=== PATIENT | female | born 1955 | race Caucasian/White ===

== ENCOUNTER → 2023-04-27 13:13 | Outpatient (REF) | payer MEDICARE, OTHER, SELFPAY ==
[2023-04-27 16:06] LABS: ALT (SGPT) 18 U/L (0-35); AST (SGOT) 24 U/L (14-36); Alkaline Phosphatase 56 U/L (38-126); Blood Urea Nitrogen 25 mg/dl (7-17); Calcium 9.6 mg/dl (8.4-10.2); Carbon Dioxide 27 mmol/L (22-30); Chloride 102 mmol/L (98-107); Glucose 95 mg/dl (70-99); Sodium 137 mmol/L (135-145); Total Bilirubin 0.5 mg/dl (0.2-1.3); Total Protein 6.9 g/dl (6.3-8.2); eGFR > 60.00
== END ==
LOC: HWLAB 13:13
PROVIDERS: ATTENDING PHYSICIAN Internal Medicine Rheumatology; FAMILY PHYSICIAN Internal Medicine
DX: M81.0 Age-related osteoporosis without current pathological fracture (principal)
CPT/HCPCS: 36415; 80053

== ENCOUNTER → 2023-06-24 11:44 | Outpatient (REF) | payer MEDICARE, OTHER, SELFPAY | LOC: WDC 11:44 | PROVIDERS: ATTENDING PHYSICIAN Nurse Practitioner Family; FAMILY PHYSICIAN Internal Medicine | DX: N61.0 Mastitis without abscess (principal); N64.4 Mastodynia; N64.59 Other signs and symptoms in breast | CPT/HCPCS: 76642; 77065 ==

== ENCOUNTER → 2023-07-14 11:14 | Outpatient (REF) | payer MEDICARE, OTHER, SELFPAY ==
[2023-07-14 14:26] LABS: Glycohemoglobin (HgbA1c) 5.7 % (4.0-5.6)
== END ==
LOC: MRI 3T 11:14
PROVIDERS: ATTENDING PHYSICIAN Surgery; FAMILY PHYSICIAN Internal Medicine
DX: N63.20 Unspecified lump in the left breast, unspecified quadrant (principal); R73.9 Hyperglycemia, unspecified
CPT/HCPCS: 36415; 77049; 83036; A9575

== ENCOUNTER → 2023-08-03 11:47 | Outpatient (REF) | payer MEDICARE, OTHER, SELFPAY ==
--- NOTE | 2023-08-03 15:58 | OID.BR.INTR ---
OID Breast Navigator - Initial
- -
Date of Contact: 08/03/23
Met with patient. Patient given written information on navigator services and support services available at [facility]. Will follow up as needed per protocol.
== END ==
LOC: WDC 11:47
PROVIDERS: ATTENDING PHYSICIAN Surgery; FAMILY PHYSICIAN Internal Medicine
DX: R92.8 Other abnormal and inconclusive findings on diagnostic imaging of breast (principal); N63.22 Unspecified lump in the left breast, upper inner quadrant
CPT/HCPCS: 88305; 19083; 77065; 88341; 88342; 88360; A4648

== ENCOUNTER → 2023-08-25 10:55 | Outpatient (REF) | payer MEDICARE, OTHER, SELFPAY | LOC: CLAB 10:55 | PROVIDERS: ATTENDING PHYSICIAN Surgery; REFERRING PHYSICIAN Internal Medicine | DX: C50.412 Malignant neoplasm of upper-outer quadrant of left female breast (principal); N64.9 Disorder of breast, unspecified | CPT/HCPCS: 88305 ==

== ENCOUNTER → 2023-09-15 08:33 | Outpatient (REF) | payer MEDICARE, OTHER, SELFPAY | LOC: WDC 08:33 | PROVIDERS: ATTENDING PHYSICIAN Surgery | DX: D05.92 Unspecified type of carcinoma in situ of left breast (principal); R92.8 Other abnormal and inconclusive findings on diagnostic imaging of breast | CPT/HCPCS: 19285; 77065; A4648 ==

== ENCOUNTER 2023-09-16 06:19 | Day surgery (SDC) | payer MEDICARE, OTHER, SELFPAY ==
[2023-08-29 08:53] VITALS: BMI 25.4
[2023-09-16 15:10] VITALS: BP 126/82; BMI 25.4
[2023-09-16] MEDS: TYLENOL 1000 MG PO (15:14)
[2023-09-16 17:45] VITALS: BP 144/73
[2023-09-16 18:00] VITALS: BP 125/72
[2023-09-16 18:15] VITALS: BP 126/72
== END 2023-09-16 18:35 | disposition home or self-care (01) ==
LOC: SDS 06:19
PROVIDERS: ATTENDING PHYSICIAN Surgery; FAMILY PHYSICIAN Internal Medicine
DX: D05.12 Intraductal carcinoma in situ of left breast (principal); N60.12 Diffuse cystic mastopathy of left breast
CPT/HCPCS: 19301; 88305; 88307; 76098; 88341; 88342; 88360; A4648

== ENCOUNTER → 2023-11-04 08:35 | Outpatient (REF) | payer MEDICARE, OTHER, SELFPAY ==
[2023-11-04 12:50] LABS: ALT (SGPT) 21 U/L (0-35); AST (SGOT) 25 U/L (14-36); Albumin 4.5 g/dl (3.5-5.0); Alkaline Phosphatase 62 U/L (38-126); Blood Urea Nitrogen 22 mg/dl (7-17); Calcium 9.9 mg/dl (8.4-10.2); Carbon Dioxide 24 mmol/L (22-30); Chloride 103 mmol/L (98-107); Glucose 102 mg/dl (70-99); Potassium 4.1 mmol/L (3.5-5.1); Sodium 139 mmol/L (135-145); Total Bilirubin 0.6 mg/dl (0.2-1.3); Total Protein 6.7 g/dl (6.3-8.2); eGFR > 60.00
== END ==
LOC: HWLAB 08:35
PROVIDERS: ATTENDING PHYSICIAN Internal Medicine Rheumatology; FAMILY PHYSICIAN Internal Medicine
DX: M81.0 Age-related osteoporosis without current pathological fracture (principal)
CPT/HCPCS: 36415; 80053

== ENCOUNTER → 2023-11-14 09:55 | Outpatient (REF) | payer MEDICARE, OTHER, SELFPAY | LOC: HWRAD 09:55 | PROVIDERS: ATTENDING PHYSICIAN Internal Medicine Rheumatology; FAMILY PHYSICIAN Internal Medicine; REFERRING PHYSICIAN Nurse Practitioner Family | DX: M81.0 Age-related osteoporosis without current pathological fracture (principal) | CPT/HCPCS: 77080 ==

== ENCOUNTER → 2023-12-08 10:42 | Outpatient (REF) | payer MEDICARE, OTHER, SELFPAY ==
[2023-12-08 15:52] LABS: % Eosinophils 4.2 % (0-6); % Immature Granulocytes 0.2 % (0-0.5); % Lymphocytes 38.9 % (20.5-51.1); % Monocytes 6.5 % (1.7-9.3); % Neutrophils 49.2 % (42.2-75.2); Absolute Basophils 0.1 10^3/uL (0-0.2); Absolute Eosinophils 0.2 10^3/uL (0-0.7); Absolute Monocytes 0.3 10^3/uL (0.1-0.6); Absolute Neutrophils 2.6 10^3/uL (1.4-6.5); Hematocrit 37.8 % (37.0-47.0); Hemoglobin 12.6 g/dL (12.0-16.0); Mean Corp Hgb Conc. 33.3 g/dL (33.0-37.0); Mean Corpuscular Hgb 29.6 pg (27.0-31.0); Mean Corpuscular Volume 88.9 fL (81.0-99.0); Mean Platelet Volume 9.4 fL (7.4-10.4); Nucleated Red Blood Cells % 0 %; Platelet Count 389 10^3/uL (130-400); Red Blood Cell Count 4.25 10^6/uL (4.20-5.40); Red Cell Dist. Width 12.8 % (11.5-14.5); White Blood Cell Count 5.2 10^3/uL (4.8-10.8)
[2023-12-08 15:59] LABS: ALT (SGPT) 22 U/L (0-35); AST (SGOT) 27 U/L (14-36); Albumin 4.1 g/dl (3.5-5.0); Alkaline Phosphatase 53 U/L (38-126); Blood Urea Nitrogen 18 mg/dl (7-17); Calcium 8.7 mg/dl (8.4-10.2); Carbon Dioxide 26 mmol/L (22-30); Chloride 105 mmol/L (98-107); Glucose 96 mg/dl (70-99); HDL Cholesterol 68 mg/dl; LDL Cholesterol, Calculated 165 mg/dl; Potassium 4.1 mmol/L (3.5-5.1); Sodium 143 mmol/L (135-145); Total Bilirubin 0.3 mg/dl (0.2-1.3); Total Cholesterol 249 mg/dl (50-199); Total Protein 6.5 g/dl (6.3-8.2); Triglyceride 81 mg/dl (10-149); Very Low Density Lipoprotein 16 mg/dl (0-30); eGFR > 60.00
[2023-12-08 16:28] LABS: TSH Reflex To Free T4 0.82 uIU/ml (0.47-4.68)
[2023-12-08 18:42] LABS: Hepatitis B Surface Antigen Negative (Negative)
[2023-12-08 19:00] LABS: Hepatitis B Core Ab, Total Negative (Negative); Hepatitis B Surface Antibody Negative
== END ==
LOC: HWLAB 10:42
PROVIDERS: ATTENDING PHYSICIAN Internal Medicine; REFERRING PHYSICIAN Internal Medicine Rheumatology
DX: K21.9 Gastro-esophageal reflux disease without esophagitis (principal); F41.9 Anxiety disorder, unspecified; F32.A Depression, unspecified; E78.00 Pure hypercholesterolemia, unspecified; Z11.59 Encounter for screening for other viral diseases
CPT/HCPCS: 36415; 80053; 80061; 84443; 85025; 86704; 86706; 87340

== ENCOUNTER → 2024-01-30 16:35 | Outpatient (REF) | payer MEDICARE, OTHER, SELFPAY | LOC: MRI 3T 16:35 | PROVIDERS: ATTENDING PHYSICIAN Surgery; FAMILY PHYSICIAN Nurse Practitioner Family; REFERRING PHYSICIAN Nurse Practitioner Family | DX: C50.412 Malignant neoplasm of upper-outer quadrant of left female breast (principal) | CPT/HCPCS: 77049; A9585 ==

== ENCOUNTER → 2024-03-22 10:48 | Outpatient (REF) | payer MEDICARE, OTHER, SELFPAY | LOC: DHSLP 10:48 | PROVIDERS: ATTENDING PHYSICIAN Internal Medicine; FAMILY PHYSICIAN Nurse Practitioner Family | DX: G47.00 Insomnia, unspecified (principal); G47.61 Periodic limb movement disorder; G47.8 Other sleep disorders | CPT/HCPCS: 95810 ==

== ENCOUNTER → 2024-03-23 07:00 | Outpatient (REF) | payer MEDICARE, OTHER, SELFPAY | LOC: DHSLP 07:00 | PROVIDERS: ATTENDING PHYSICIAN Internal Medicine; FAMILY PHYSICIAN Internal Medicine | DX: G47.19 Other hypersomnia (principal) | CPT/HCPCS: 95805 ==

== ENCOUNTER → 2024-05-11 11:55 | Outpatient (REF) | payer MEDICARE, OTHER, SELFPAY ==
[2024-05-11 16:49] LABS: ALT (SGPT) 18 U/L (0-35); AST (SGOT) 21 U/L (14-36); Albumin 4.4 g/dl (3.5-5.0); Alkaline Phosphatase 54 U/L (38-126); Blood Urea Nitrogen 19 mg/dl (7-17); Calcium 8.9 mg/dl (8.4-10.2); Carbon Dioxide 22 mmol/L (22-30); Chloride 106 mmol/L (98-107); Glucose 100 mg/dl (70-99); Potassium 4.5 mmol/L (3.5-5.1); Sodium 139 mmol/L (135-145); Total Bilirubin 0.5 mg/dl (0.2-1.3); Total Protein 6.6 g/dl (6.3-8.2); eGFR > 60.00
== END ==
LOC: HWLAB 11:55
PROVIDERS: ATTENDING PHYSICIAN Internal Medicine Rheumatology; FAMILY PHYSICIAN Internal Medicine
DX: M81.0 Age-related osteoporosis without current pathological fracture (principal)
CPT/HCPCS: 36415; 80053

== ENCOUNTER → 2024-05-23 12:21 | Outpatient (REF) | payer MEDICARE, OTHER, SELFPAY ==
[2024-05-23 16:23] LABS: ALT (SGPT) 17 U/L (0-35); AST (SGOT) 22 U/L (14-36); Albumin 4.7 g/dl (3.5-5.0); Alkaline Phosphatase 61 U/L (38-126); Blood Urea Nitrogen 16 mg/dl (7-17); Calcium 9.5 mg/dl (8.4-10.2); Carbon Dioxide 27 mmol/L (22-30); Chloride 106 mmol/L (98-107); Glucose 100 mg/dl (70-99); HDL Cholesterol 74 mg/dl; LDL Cholesterol, Calculated 178 mg/dl; Potassium 4.5 mmol/L (3.5-5.1); Sodium 141 mmol/L (135-145); Total Bilirubin 0.5 mg/dl (0.2-1.3); Total Cholesterol 284 mg/dl (50-199); Total Protein 7.1 g/dl (6.3-8.2); Triglyceride 162 mg/dl (10-149); Very Low Density Lipoprotein 32 mg/dl (0-30); eGFR > 60.00
== END ==
LOC: HWLAB 12:21
PROVIDERS: ATTENDING PHYSICIAN Internal Medicine
DX: E78.00 Pure hypercholesterolemia, unspecified (principal)
CPT/HCPCS: 36415; 80053; 80061

== ENCOUNTER → 2024-06-21 10:04 | Outpatient (REF) | payer MEDICARE, OTHER, SELFPAY ==
[2024-06-21 12:44] LABS: % Eosinophils 4.7 % (0-6); % Lymphocytes 41.4 % (20.5-51.1); % Monocytes 6.6 % (1.7-9.3); % Neutrophils 46.3 % (42.2-75.2); Absolute Basophils 0.1 10^3/uL (0-0.2); Absolute Eosinophils 0.2 10^3/uL (0-0.7); Absolute Monocytes 0.3 10^3/uL (0.1-0.6); Absolute Neutrophils 2.3 10^3/uL (1.4-6.5); Hematocrit 41.5 % (37.0-47.0); Hemoglobin 13.5 g/dL (12.0-16.0); Mean Corp Hgb Conc. 32.5 g/dL (33.0-37.0); Mean Corpuscular Volume 89.2 fL (81.0-99.0); Mean Platelet Volume 9.4 fL (7.4-10.4); Nucleated Red Blood Cells % 0 %; Platelet Count 398 10^3/uL (130-400); Red Blood Cell Count 4.65 10^6/uL (4.20-5.40); Red Cell Dist. Width 12.8 % (11.5-14.5); White Blood Cell Count 4.9 10^3/uL (4.8-10.8)
[2024-06-21 12:56] LABS: Iron 134 ug/dl (37-170)
[2024-06-21 13:25] LABS: TSH Reflex To Free T4 1.25 uIU/ml (0.47-4.68)
[2024-06-21 13:29] LABS: Ferritin 53.4 ng/ml (11.1-264.0)
[2024-06-21 14:00] LABS: Folate 9.3 ng/ml (2.76-20); Vitamin B12 > 1000 pg/ml (239-931)
== END ==
LOC: HWLAB 10:04
PROVIDERS: ATTENDING PHYSICIAN Internal Medicine; OTHER PHYSICIAN Internal Medicine Endocrinology, Diabetes & Metabolism; REFERRING PHYSICIAN Internal Medicine Rheumatology
DX: R53.82 Chronic fatigue, unspecified (principal); D05.12 Intraductal carcinoma in situ of left breast; E53.8 Deficiency of other specified B group vitamins
CPT/HCPCS: 36415; 82607; 82728; 82746; 83540; 84443; 85025; 86618

== ENCOUNTER → 2024-09-12 15:39 | Outpatient (REF) | payer MEDICARE, OTHER, SELFPAY | LOC: WDC 15:39 | PROVIDERS: ATTENDING PHYSICIAN Surgery; FAMILY PHYSICIAN Internal Medicine | DX: Z12.31 Encounter for screening mammogram for malignant neoplasm of breast (principal) | CPT/HCPCS: 77063; 77067 ==

== ENCOUNTER → 2024-10-08 10:47 | Outpatient (REF) | payer MEDICARE, OTHER, SELFPAY | LOC: HWRAD 10:47 | PROVIDERS: ATTENDING PHYSICIAN Internal Medicine Endocrinology, Diabetes & Metabolism; FAMILY PHYSICIAN Internal Medicine | DX: E04.2 Nontoxic multinodular goiter (principal) | CPT/HCPCS: 76536 ==

== ENCOUNTER → 2024-11-02 11:48 | Outpatient (REF) | payer MEDICARE, OTHER, SELFPAY ==
[2024-11-02 15:59] LABS: TSH 1.05 uIU/ml (0.47-4.68)
== END ==
LOC: HWLAB 11:48
PROVIDERS: ATTENDING PHYSICIAN Internal Medicine Endocrinology, Diabetes & Metabolism; FAMILY PHYSICIAN Nurse Practitioner Family
DX: E04.2 Nontoxic multinodular goiter (principal)
CPT/HCPCS: 36415; 84439; 84443

== ENCOUNTER → 2024-11-20 08:38 | Outpatient (REF) | payer MEDICARE, OTHER, SELFPAY ==
[2024-11-20 11:08] LABS: ALT (SGPT) 15 U/L (0-35); AST (SGOT) 20 U/L (14-36); Albumin 4.2 g/dl (3.5-5.0); Alkaline Phosphatase 47 U/L (38-126); Blood Urea Nitrogen 20 mg/dl (7-17); Calcium 9.1 mg/dl (8.4-10.2); Carbon Dioxide 24 mmol/L (22-30); Chloride 109 mmol/L (98-107); Glucose 93 mg/dl (70-99); HDL Cholesterol 75 mg/dl; LDL Cholesterol, Calculated 156 mg/dl; Potassium 4.3 mmol/L (3.5-5.1); Sodium 140 mmol/L (135-145); Total Protein 6.7 g/dl (6.3-8.2); Very Low Density Lipoprotein 26 mg/dl (0-30); eGFR > 60.00
[2024-11-20 11:15] LABS: Vitamin D, 25-OH*** 67.0 ng/mL (30-80)
== END ==
LOC: HWLAB 08:38
PROVIDERS: ATTENDING PHYSICIAN Physician Assistant; FAMILY PHYSICIAN Nurse Practitioner Family
DX: E55.9 Vitamin D deficiency, unspecified (principal); M15.9 Polyosteoarthritis, unspecified; M23.307 Other meniscus derangements, unspecified meniscus, left knee; M81.0 Age-related osteoporosis without current pathological fracture; E78.2 Mixed hyperlipidemia
CPT/HCPCS: 36415; 80053; 80061; 82306

== ENCOUNTER 2024-11-21 17:47 | Observation (INO) | payer MEDICARE, OTHER, SELFPAY ==
[2024-11-21] VITALS (9 sets, daily range): BP systolic 127–150; BP diastolic 78–91; BMI 27.0
[2024-11-21 13:23] LABS: Hematocrit 38.0 % (37.0-47.0); Hemoglobin 12.6 g/dL (12.0-16.0); Mean Corp Hgb Conc. 33.2 g/dL (33.0-37.0); Mean Corpuscular Volume 86.8 fL (81.0-99.0); Nucleated Red Blood Cells % 0 %; Platelet Count 364 10^3/uL (130-400); Red Cell Dist. Width 12.9 % (11.5-14.5)
[2024-11-21 13:33] LABS: ALT (SGPT) 17 U/L (0-35); AST (SGOT) 23 U/L (14-36); Albumin 4.7 g/dl (3.5-5.0); Alkaline Phosphatase 55 U/L (38-126); Blood Urea Nitrogen 18 mg/dl (7-17); Calcium 10.9 mg/dl (8.4-10.2); Carbon Dioxide 26 mmol/L (22-30); Chloride 105 mmol/L (98-107); Glucose 91 mg/dl (70-99); Potassium 4.2 mmol/L (3.5-5.1); Sodium 138 mmol/L (135-145); Total Protein 7.6 g/dl (6.3-8.2); eGFR > 60.00
[2024-11-21 13:39] LABS: APTT 25.6 Sec (23.4-35.0); INR 0.86; PT 12.2 Sec (11.4-14.6)
--- NOTE | 2024-11-21 15:51 | ED.CVA ---
History of Present Illness
General
Chief Complaint: CVA/TIA Symptoms
Source: patient
Exam Limitations: none
Time Seen by Provider: 11/21/24 15:06
Nursing documentation reviewed up to this point in time: agreed with
Onset of Stroke Symptoms
Onset of symptoms known: Yes
Date of onset of symptoms: 11/07/24
History of Present Illness
History of Present Illness:
Patient with history of hypercholesterolemia, treated with diet, and depression, presents to ED secondary to left eye visual field deficit over the past 2 weeks. Patient has been evaluated by her toll line mechanic and diagnosed with likely central
retinal artery occlusion. Patient called and wanted to have a second opinion at [facility] retinal specialist. When patient called to make an appointment, she was advised to come to ED for stroke workup first. Since onset of symptoms 2 weeks
ago, patient states that visual field deficit has gotten greater. Denies headache. Denies dizziness. Denies blurred vision. Denies loss of sensation or weakness. Denies difficulty with speech. Denies difficulty ambulation. Denies previous
history of similar symptoms.
Past History
Past History
ED Past Medical History: None
ED Past Surgical History: None
Review of Systems
Review of Systems
Allergies reviewed?: Yes
All Other Systems: ROS reviewed and negative except as documented in HPI and ROS
Constitutional: Reports no symptoms
Respiratory: Reports no symptoms
Cardiac: Reports no symptoms
ABD/GI: Reports no symptoms
Musculoskeletal: Reports no symptoms
Skin: Reports no symptoms
Neurological: Reports other (visual field deficit)
Phy Exam
Physical Exam
Physical Exam:
Physical Exam
General: no apparent distress, not acutely ill. afebrile
Head: nc/at. eomi
Neck: supple. no meningeal signs.
Heart: s1/s2 regular rate and rhythm
Lungs: no acute respiratory distress. clear bilaterally
Abdomen: normal bowel sounds. not tender.
Neuro: alert and oriented x 3. no focal sensory/motor deficit. normal speech. left eye: top 1/2 visual field deficit
Skin: no rash
Psychiatric: well kept. interactive and cooperative
Extremities: no edema. no calf tenderness.
Course
Orders/Labs/Results
Orders:
Orders
11/21/24 12:41
CT Head W/o Iv Contrast Urgent
Comment:
Reason For Exam: visual change
11/21/24 12:42
ECG [Electrocardiogram (*1)] Urgent
Reason for Study: TIA/Stroke
EKG- Treatment ONCE
11/21/24 13:14
C-Reactive Protein Urgent
Comment: ADD ON
Complete Blood Count/With Diff Urgent
Comprehensive Metabolic Panel Urgent
Erythrocyte Sed Rate Urgent
Glycohemoglobin (HgbA1c) Urgent
PT/INR [Prothrombin Time] Urgent
PTT Urgent
11/21/24 Dinner
Regular
At Your Request: Full Participation
Does patient need a safe tray?: No
11/21/24 16:00
CT Head & Neck Angio W/wo IV Urgent
Comment:
Reason For Exam: left visual field deficit
Aspirin Chewable [Low Strength Aspirin] 81 mg PO NOW STA
11/21/24 17:09
Admit/Transfer Patient As Directed
Co-Sign Provider:
Level of Care: Observation services
Assign to:: Telemetry
Physician / Group: Odilia Cohen
Diagnosis: visual field deficit
Reason for Telemetry: CVA/TIA
Date to Stop Telemetry: 11/24/24
Time to Stop Telemetry: 11:00
11/21/24 17:10
PRN Pain Medication Management As Directed
May give lesser potent ordered pain med per pt: Yes
preference::
Protocol:: Medication orders for pain may be administered in a
manner that supports deferring to patient preference
when the pt is:
- Requesting an ordered lesser potent pain medication.
Least to most potent pain medications are defined
as: acetaminophen < NSAID < tramadol < opioids
(morphine, oxycodone, hydromorphone).
- Requesting a lesser dose of the same medication IF
ORDERED.
- Requesting a less intrusive route of administration
if both routes are prescribed by the provider (PO <
IV).
11/21/24 17:11
Code Status As Directed
Resuscitation Status: Full Code
11/21/24 20:19
Lamotrigine [Lamictal] 100 mg PO BID
11/21/24 20:19
NEUROLOGY CONSULT Routine
Consulting Provider: Becki Villa
Was physician already notified: Yes
Activity As Directed
Activity Level: Ambulate
NIH Stroke Scale As Directed
Neurological Checks As Directed
Frequency: Per unit guidelines
Pneumatic Compression Sleeves As Directed
Type: Knee high
Vital Signs As Directed
Frequency: Per unit guidelines
Weight As Directed
Frequency: Once
Comment: on admission
DX Deep Vein Thrombosis Video Routine
11/21/24 22:00
Cetirizine HCl [Zyrtec] 10 mg PO HS
Duloxetine Delayed Release [Cymbalta Delayed Release] 40 mg PO HS
Raloxifene [Evista] 60 mg PO HS
11/22/24 06:47
Basic Metabolic Panel IN AM
Cardiovascular Evaluation IN AM
TSH IN AM
11/22/24 07:00
Echo 2D MMode Color/Doppler Routine
Reason for Study: Thrombotic source for stroke-like sxs
11/22/24 08:00
Calcium Carbonate/Vitamin D3 [Oscal 500 + D] 500 mg PO DAILY
Lactobac/Bifidobac [Visbiome] 1 cap PO DAILY
Pantoprazole [Protonix] 20 mg PO DAILY
Psyllium [Metamucil, Konsyl] 1 packet PO DAILY
11/24/24 11:00
DC Protocol for Telemetry ONCE
Abnormal Lab Results
11/21/24
13:14
Eosinophils % 6.2 H %
(0-6)
BUN 18 H mg/dl
(7-17)
Calcium 10.9 H D mg/dl
(8.4-10.2)
11/21/24 13:14
11/21/24 13:14
Vital Signs
Initial and Last Documented VS:
Initial Vital Signs
Temp Pulse Resp Pulse Ox
97.9 F 76 18 97
11/21/24 12:36 11/21/24 12:36 11/21/24 12:36 11/21/24 12:36
Last Documented Vital Signs
Temp Pulse Resp BP Pulse Ox
98.2 F 76 18 145/80 98
11/22/24 11:37 11/22/24 11:37 11/22/24 11:37 11/22/24 11:37 11/22/24 11:37
MDM/Problems Addressed
MDM/Problems Addressed:
CT head: No acute findings.
Discussed with on-call neuroloy () - recommends starting patient on 81mg aspirin and admission for CVA workup.
*Pulse Oximetry
SaO2: 100
Oxygen Mode of Delivery: Room air
Patient hypoxic: no
*EKG
Interpreted by ED Provider?: Yes
EKG Intrepretation Date: 11/21/24
Heart Rate: 70
Rate: normal
Rhythm: sinus
Peytona: normal axis
Interval: normal interval
*Critical Care Note
Total Time (30-74mins, 75-104mins- exclusive of procedures): Not Applicable
ED Attending Note
-
Portions of this chart may have been created with voice recognition software.� Occasional wrong word or��sound alike� substitutions may have occurred due to the inherent limitations of voice recognition software.
Discharge Plan
Departure
Patient Disposition: Admit
Date of Disposition: 11/21/24
Time of Disposition: 16:03
Admit to: Telemetry
Presentation/result/management discussed w/ accepting MD/DO: Hospitalist
Discharge Problem:
visual field deficit
Interventions
Interventions:
*Risk Screen - Suicide Last Done: 11/21/24 12:36
*General Assessment Last Done: 11/21/24 12:36
*Neglect/Abuse Screening Last Done: 11/21/24 15:51
*ED- Fall Risk Assessment Last Done: 11/21/24 15:51
*ED COVID-19 Vaccine History Last Done: 11/21/24 15:51
*Nursing Disposition Last Done: 11/21/24 20:26
ED- Pulmonary Assessment Last Done: 11/21/24 15:54
ED- Neurological Assessment Last Done: 11/21/24 16:00
ED- Cardiac Assessment Last Done: 11/21/24 15:54
ED Swallowing Screen Last Done: 11/21/24 16:15
Discharge Date and Time
Discharge Date/Time: 11/21/24 20:27
--- NOTE | 2024-11-21 16:08 | HPS.HSE ---
Addendum entered and electronically signed by Odilia Cohen MD 11/21/24 17:57:
This is an addendum to H&P written by Shannan Tineo on 11/21/2024. �Patient seen and examined independently with WELT SLASHER.
69-year-old female past medical history of depression, GERD, arthritis, osteoporosis, fibromyalgia, chronic right jaw pain suspected trigeminal neuralgia presenting with persistent grayness in the left eye 10 days ago in the left eye in the upper
half of the visual orantes.
She she saw electronic equipment installer who thought she has central retinal artery occlusion. �She called to make a second opinion and was told to come to the emergency room to rule out stroke.
In May she had an episode of left swelling and itching which resolved with topical hydrocortisone. �This also occurred a few days ago which resolved with topical hydrocortisone.
Vital signs unremarkable.
Labs show calcium of 10.9.
CT head shows no acute intracranial abnormality.
Patient with superior hemianopia of left eye concerning for acute CVA. �CTA head and neck pending. �Check A1c and lipid panel. �Check MRI brain. �Neurology recommended starting aspirin and statin. Check echo.�
Original Note:
Family Physician
-
Family Physician: Piedad Blackman
Chief Complaint
-
left eye visual field deficit
History of Present Illness
Patient is a 69-year-old female with past medical history significant for depression, GERD, arthritis, osteoporosis and fibromyalgia who presented to [facility] ED for evaluation for left eye visual field deficit. Patient reports left upper field of
vision in left eye had deficit that started 10 days ago and has progressed to the entire upper half of left eye visual field. She also complains of discomfort, described as 'feels like it is swollen inside,' does say similar to pressure. She was
seen by electronic equipment installer and diagnosed with likely central retinal artery occlusion, in pursuit of second opinion with retinal specialist, the office advised her to go to ED for stroke workup. Patient denies any headaches, dizziness, confusion,
blurry vision, sensory deficit, imbalance, difficulty talking, confusion, recent illness, rash or bug bite. Patient notes that in May of 2024 she had what she believes was environmental allergen where left eye became swollen and itchy, it did
spread to right eye and has been intermittently irritated since then, in July 2024 she began using hydrocortisone cream to help alleviate symptoms and has been effective. Most recent episode of left eye being swollen an itchy was Tuesday.
Medical History
Past Medical History
Past Medical History: Reports Other
Additional Past Medical History:
depression
GERD
arthritis
osteoporosis
fibromyalgia
Past Surgical History: Reports Other
Additional Past Surgical History:
hemorrhoidectomy
squamous cell removed face 2015
wisdom teeth
Left ramírez biopsy 2014
skin biopsy 2017
US guided Left breast biopsy 08/01/2023
office biopsy Left breast 08/25/23
Left localized lumpectomy oncoplastic closure 09/16/23
Social History
Tobacco: Non-smoker
Personal:
Living: With Family
Family History
Family History: Other (Mother: colon cancer, HTN; Father: wet and dry macular degeneration; Sister: renal cancer)
Allergies / Home Medications
Allergies reflects when Allergies were last updated in [employer].
Home Medications with original date entered in [employer]
Allergy/Medication List:
Allergies
Allergy/AdvReac Type Severity Reaction Status Date / Time
cephalexin (From Keflex) Allergy Rash Verified 11/21/24 15:52
Cephalosporins Allergy Rash Verified 11/21/24 15:52
prochlorperazine edisylate Allergy BODY RASH Verified 11/21/24 15:52
(From Compazine)
prochlorperazine maleate Allergy BODY RASH Verified 11/21/24 15:52
(From Compazine)
Home Medications
calcium 600 mg (as carbonate)-vitamin D3 10 mcg (400 unit) tablet (Calcium 600 + D(3)) 1 tab PO DAILY 09/14/23
cetirizine 10 mg tablet (Zyrtec) 10 mg PO HS 09/14/23
denosumab 60 mg/mL subcutaneous syringe (Prolia) 60 mg SC [id number] 09/14/23
hyaluronate sodium, stabilized 88 mg/4 mL intra-articular syringe (Monovisc) 88 mg intra-articular [id number] 09/14/23
ibuprofen 600 mg tablet 600 mg PO Q8HPRN PRN mild pain 09/14/23
lamotrigine 100 mg tablet 100 mg PO BID jaw pains 09/14/23
pantoprazole 20 mg tablet,delayed release (Protonix) 20 mg PO DAILY 09/14/23
red yeast rice 600 mg capsule 1,200 mg PO DAILY 09/14/23
vitamin E (dl, acetate) 450 mg (1,000 unit) capsule 450 mg PO DAILY 09/14/23
Bifidobacterium longum 10 million cell capsule (Align (B.longum)) 1 cell PO DAILY 11/21/24
duloxetine 20 mg capsule,delayed release 40 mg PO HS 11/21/24
krill kwh-rcbwl-1-dha-epa 300 mg-90 mg (27 mg-45 mg) capsule 1 cap PO DAILY 11/21/24
psyllium 1 packet PO DAILY 11/21/24
raloxifene 60 mg tablet 60 mg PO HS 11/21/24
therapeutic multivitamin 1 tab PO DAILY 11/21/24
Review of Systems
-
History Source: Patient
Constitutional: Denies Fever or Chills
EENT: Reports Other (left eye upper 1/2 visual field deficit, intermittent bilateral eyelid edema and itching ); Denies Sore Throat, Mouth Pain or Runny Nose
Respiratory: Denies Cough or Trouble Breathing
Cardiac: Denies Chest Pain, Diaphoresis, Palpitations or Syncope
Abdomen/GI: Denies Abdominal Pain, Nausea, Vomiting or Diarrhea
: Denies Dysuria, Frequency, Difficulty Voiding or Urgency
Musculoskeletal: Denies Joint Pain or Joint Swelling
Skin: Denies Itching or Rash
Neurological: Denies Dizzy, Headache, Weakness or Numbness
Endocrine: Denies Polyuria or Polydipsia
Physical Exam
Vital Signs
Vital Signs
Temp Pulse Resp BP Pulse Ox
97.9 F 72 18 136/87 100
11/21/24 12:36 11/21/24 15:25 11/21/24 15:25 11/21/24 15:25 11/21/24 15:54
Physical Exam
General: Well Developed, Well Nourished, Comfortable, Conversant and Obese
HEENT: NormoCephalic, Moist mucous membranes, Atraumatic, PERRLA, Nose Appears Normal, Ears Appear Normal and Other (left eyelid with dry patch and irritation )
Respiratory: Clear and Non Labored Respirations
Cardiac: S1/S2 and Regular Rhythm; No Murmur, Rub or Gallop
GI: Soft, Non Tender, Non Distended and Normal Bowel Sounds; No Organomegaly
Rectal: Deferred by Provider
Musculoskeletal: No Clubbing, No Cyanosis and No Edema
Skin: Warm; No Rash
Neuro: Awake, AO x 3, No Motor Deficits, Nonfocal/grossly intact, Cranial Nerves Intact (II-XII) and No Sensory Deficits; No Slurred Speech, Facial Droop, Tremors or Sedated
Psych: Calm
Laboratory Results
-
11/21/24 13:14
11/21/24 13:14
Laboratory Results
PT 12.2 Sec (11.4-14.6) 11/21/24 13:14
INR 0.86 11/21/24 13:14
APTT 25.6 Sec (23.4-35.0) 11/21/24 13:14
Total Bilirubin 0.4 mg/dl (0.2-1.3) 11/21/24 13:14
AST 23 U/L (14-36) 11/21/24 13:14
ALT 17 U/L (0-35) 11/21/24 13:14
Alkaline Phosphatase 55 U/L (38-126) 11/21/24 13:14
Data Reviewed
-
CT Scan: Report Reviewed by me (Head: No acute intracranial abnormality.)
Medical Tests (Nuc Med, Echo, EKG etc): Report Reviewed by me (EKG: NORMAL SINUS RHYTHM)
Lab Data: Labs Reviewed by me
Impression/Plan
-
IMPRESSION/PLAN:
#left eye upper 1/2 visual field deficit 2/2 CVA/TIA vs. central retinal artery occlusion
EKG: NORMAL SINUS RHYTHM
Head CT: No acute intracranial abnormality.
- Admit to telemetry
- Consult Neurology
- Head/Neck CTA pending
- MRI in morning
- NIH and Neuro checks per protocol
#depression
- continue duloxetine
#GERD
- continue pantoprazole
#arthritis
- continue Monovisc
#osteoporosis
- continue raloxifene
#fibromyalgia
Code status: full code
DVT prophylaxis: SCDs
[2024-11-21] MEDS: LOW STRENGTH ASPIRIN 81 MG PO (16:16)
--- NOTE | 2024-11-21 16:50 | CON.NEURO ---
Consultation
Order
Date of Consultation: 11/21/24
Requesting Provider: Abelardo Miner M. D.
Reason for Consult: BRAO
Neurology Consultation Note.
HPI: This is a 69-year-old woman who presented to [facility] on 11/20/[facility]24 with visual symptoms. Ms. Roland reports that she developed an acute painless visual loss about mid top of her left visual field around 2 weeks ago. The
visual symptoms started off very small but have progressively worsened over time.
Initially, she saw an apigee developer who examined her eye but did not see anything abnormal despite her visible symptoms. As her vision continued to deteriorate, she contacted the office again requesting to see a retinal specialist. She was able to
see Dr. Delia Aparicio and was referred to ER.
Since the onset of her symptoms, her vision has not improved. She experiences some discomfort in the affected eye, describing it as feeling swollen and uncomfortable.
The patient reports no eye pain, no back pain, and no neck pain currently, though she has a history of herniated discs. She has had previous cataract surgery on both eyes. She denies smoking or drug use, and reports drinking alcohol only
occasionally in very small amounts.
Surgical History
- Bilateral cataract surgery
Family History
- Mother: Hypertension, colon cancer, depression, uncontrolled diabetes, macular degeneration, coronary artery disease
- Sister: Kidney cancer, 20 years ago from kidney cancer
Social History
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
- Substance Use: Minimal alcohol consumption, denies tobacco and recreational drug use
Review of Systems
HEENT: Positive for eye discomfort and sensation of swelling in left eye.
Musculoskeletal: Positive for back pain. Negative for neck pain.
ER VS: 136/87, 72, afebrile
EKG: Normal sinus rhythm
PDMP: No recently prescribed medication
Labs: Normal sodium, glucose, calcium�10.9, LDL�156
CT head wo contrast�unremarkable
PMH: L DCIS, DLP, GERD, osteopenia, OA, FERNY, left elbow bursitis
PSH: Bilateral cataract surgery
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
FH: Mother�colon cancer, sister�renal cancer.
All: Cephalosporins Compazine, cephalexin
ROS: HEENT: Positive for visual loss, eye discomfort and sensation of swelling in left eye.
Musculoskeletal: Positive for back pain. Negative for neck pain.
General: Well developed. In no acute distress.
Cardio: Regular rate and rhythm without murmur. Extremities are without cyanosis or edema.
Neuro:
Mental Status: Alert, oriented to person, place, and date. Normal attention and recall. Good fund of knowledge. Follows complex requests across the midline. Comprehension, naming, and repetition intact. Immediate and delayed recall 3/3.
Cranial Nerves: Pupils are equally round and reactive to light. EOMs full. Visual orantes full to confrontation except for left upper half visual loss. No ptosis. No nystagmus. Face symmetric. Normal hearing AU. The palate elevated well.
SCMs and traps 5/5. Tongue midline. No dysarthria.
Motor: Normal bulk and tone. No pronator or arm drift. Strength 5/5 throughout. No clonus.
Reflexes: 2+ throughout the upper extremities and knees. Plantar responses flexor bilaterally. Positive Pamela's on the left.
Sensory: Normal vibration at the ankles
Coordination: No dysmetria or tremor.
Gait: deferred
Assessment and Plan:
I. L BRAO
II. DLP
III.L DCIS
- Continue alarm security or surveillance monitor
- Start aspirin 81 mg once a day and Lipitor 40 mg once a day
- Please follow-up CTA head and neck
- Brain MRI without ferny
- RODOLFO
- Ophthalmology consult
- The case was discussed with patient's , present at bedside
I personally reviewed all radiology and labs along with past medical records pertinent to current medical problems. Total time spent in patient care is 60 minutes.
Thank you for allowing us to participate in the care of this patient. We will continue to follow. Please do not hesitate to contact us with any questions or concerns.
Subjective/Objective
Subjective Data
Date of Service: November 21, 2024
Objective Data
Vital Signs
Temp Pulse Resp BP Pulse Ox
36.6 C 68 20 139/89 100
11/21/24 12:36 11/21/24 16:30 11/21/24 16:30 11/21/24 16:24 11/21/24 16:30
Lab Results
11/21/24 13:14
11/21/24 13:14
PT 12.2 Sec (11.4-14.6) 11/21/24 13:14
INR 0.86 11/21/24 13:14
APTT 25.6 Sec (23.4-35.0) 11/21/24 13:14
Sodium 138 mmol/L (135-145) 11/21/24 13:14
Potassium 4.2 mmol/L (3.5-5.1) 11/21/24 13:14
BUN 18 mg/dl (7-17) H 11/21/24 13:14
Glucose 91 mg/dl (70-99) 11/21/24 13:14
Calcium 10.9 mg/dl (8.4-10.2) H D 11/21/24 13:14
Patient Allergies
cephalexin (From Keflex) Allergy (Verified 11/21/24 15:52)
Rash
Cephalosporins Allergy (Verified 11/21/24 15:52)
Rash
prochlorperazine edisylate (From Compazine) Allergy (Verified 11/21/24 15:52)
BODY RASH
prochlorperazine maleate (From Compazine) Allergy (Verified 11/21/24 15:52)
BODY RASH
Medications
-
Home Medications
�Medication �Instructions �Recorded
calcium 600 mg (as 1 tab PO DAILY 09/14/23
carbonate)-vitamin D3 10 mcg (400
unit) tablet (Calcium 600 + D(3))
cetirizine 10 mg tablet (Zyrtec) 10 mg PO HS 09/14/23
denosumab 60 mg/mL subcutaneous 60 mg SC [id number] 09/14/23
syringe (Prolia)
hyaluronate sodium, stabilized 88 88 mg intra-articular [id number] 09/14/23
mg/4 mL intra-articular syringe
(Monovisc)
ibuprofen 600 mg tablet 600 mg PO Q8HPRN PRN mild pain 09/14/23
lamotrigine 100 mg tablet 100 mg PO BID jaw pains 09/14/23
pantoprazole 20 mg tablet,delayed 20 mg PO DAILY 09/14/23
release (Protonix)
red yeast rice 600 mg capsule 1,200 mg PO DAILY 09/14/23
vitamin E (dl, acetate) 450 mg 450 mg PO DAILY 09/14/23
(1,000 unit) capsule
Bifidobacterium longum 10 million 1 cell PO DAILY 11/21/24
cell capsule (Align (B.longum))
duloxetine 20 mg capsule,delayed 40 mg PO HS 11/21/24
release
krill whr-zxxlh-7-dha-epa 300 1 cap PO DAILY 11/21/24
mg-90 mg (27 mg-45 mg) capsule
psyllium 1 packet PO DAILY 11/21/24
raloxifene 60 mg tablet 60 mg PO HS 11/21/24
therapeutic multivitamin 1 tab PO DAILY 11/21/24
Vital Signs and Labs
-
Vital Signs and Labs:
Vital Signs
Temp Pulse Resp BP Pulse Ox
36.6 C 68 20 139/89 100
11/21/24 12:36 11/21/24 16:30 11/21/24 16:30 11/21/24 16:24 11/21/24 16:30
Lab Results
11/21/24 13:14
11/21/24 13:14
PT 12.2 Sec (11.4-14.6) 11/21/24 13:14
INR 0.86 11/21/24 13:14
APTT 25.6 Sec (23.4-35.0) 11/21/24 13:14
Sodium 138 mmol/L (135-145) 11/21/24 13:14
Potassium 4.2 mmol/L (3.5-5.1) 11/21/24 13:14
BUN 18 mg/dl (7-17) H 11/21/24 13:14
Glucose 91 mg/dl (70-99) 11/21/24 13:14
Calcium 10.9 mg/dl (8.4-10.2) H D 11/21/24 13:14
Home Medications
-
Home Medications
calcium 600 mg (as carbonate)-vitamin D3 10 mcg (400 unit) tablet (Calcium 600 + D(3)) 1 tab PO DAILY 09/14/23
cetirizine 10 mg tablet (Zyrtec) 10 mg PO HS 09/14/23
denosumab 60 mg/mL subcutaneous syringe (Prolia) 60 mg SC [id number] 09/14/23
hyaluronate sodium, stabilized 88 mg/4 mL intra-articular syringe (Monovisc) 88 mg intra-articular [id number] 09/14/23
ibuprofen 600 mg tablet 600 mg PO Q8HPRN PRN mild pain 09/14/23
lamotrigine 100 mg tablet 100 mg PO BID jaw pains 09/14/23
pantoprazole 20 mg tablet,delayed release (Protonix) 20 mg PO DAILY 09/14/23
red yeast rice 600 mg capsule 1,200 mg PO DAILY 09/14/23
vitamin E (dl, acetate) 450 mg (1,000 unit) capsule 450 mg PO DAILY 09/14/23
Bifidobacterium longum 10 million cell capsule (Align (B.longum)) 1 cell PO DAILY 11/21/24
duloxetine 20 mg capsule,delayed release 40 mg PO HS 11/21/24
krill eww-hlcrj-3-dha-epa 300 mg-90 mg (27 mg-45 mg) capsule 1 cap PO DAILY 11/21/24
psyllium 1 packet PO DAILY 11/21/24
raloxifene 60 mg tablet 60 mg PO HS 11/21/24
therapeutic multivitamin 1 tab PO DAILY 11/21/24
[2024-11-21 17:00] LABS: C-Reactive Protein < 5.00 mg/L (0.0-10.00)
--- NOTE | 2024-11-21 18:15 | EDCM ---
C reviewed chart and met with pt and bedside in ED. Lives with , 2 story home, 2 [address], first floor half bath, full flight to second floor bedroom and full bath.
Independent in ADLs, personal care and ambulation at baseline. No assistive devices. Still driving.
Confirms prescription coverage.
Declined signing SUAREZ, copy left with pt.
No hx VN or SNF
PCP: Piedad Blackman
Pharmacy; [facility] [place]
Pt requesting records be sent to Delia Aparicio at [facility] and [facility], I informed her they may have to request records at discharge.
CM will continue to follow for all discharge planning needs.
[2024-11-21] MEDS: CYMBALTA DELAYED RELEASE 40 MG PO (21:09)
[2024-11-21] MEDS: ZYRTEC 10 MG PO (21:09)
[2024-11-21] MEDS: EVISTA 60 MG PO (21:09)
[2024-11-21] MEDS: LAMICTAL 100 MG PO (21:09)
--- NOTE | 2024-11-21 22:00 | PTCARENOTE ---
Patient received from ED via stretcher and ambulated to room with a steady gait. She was oriented to room and surroundings. Ox3, HRR Tele NSR, BS CTA b/l. She continue with left upper shearer are in vision. NIH 1. Plan of care reviewed. Call jeffries
in reach.
[2024-11-21] MEDS: REFRESH EYE DROPS (PF) 1 DROPS OPHTH (22:02)
[2024-11-22 03:54] VITALS: BP 105/60
[2024-11-22 07:50] VITALS: BP 126/70
[2024-11-22 08:16] LABS: Blood Urea Nitrogen 17 mg/dl (7-17); Calcium 9.7 mg/dl (8.4-10.2); Carbon Dioxide 27 mmol/L (22-30); Chloride 107 mmol/L (98-107); Estimated Creatinine Clearance 55 ml/min; Glucose 87 mg/dl (70-99); HDL Cholesterol 77 mg/dl; LDL Cholesterol, Calculated 154 mg/dl; Potassium 4.5 mmol/L (3.5-5.1); Sodium 140 mmol/L (135-145); Very Low Density Lipoprotein 20 mg/dl (0-30); eGFR > 60.00
[2024-11-22] MEDS: OSCAL 500 + D 500 MG PO (08:26)
[2024-11-22] MEDS: ASPIR LOW (ENTERIC COATED) 81 MG PO (08:27)
[2024-11-22] MEDS: PROTONIX 20 MG PO (08:27)
[2024-11-22] MEDS: LAMICTAL 100 MG PO (08:27)
[2024-11-22] MEDS: VISBIOME 1 CAP PO (08:27)
[2024-11-22] MEDS: METAMUCIL, KONSYL 1 PACKET PO (08:27)
--- NOTE | 2024-11-22 08:35 | W.PN.NEURO.1 ---
Today's Communication / Plan
-
Continue lifelong aspirin
Continue atorvastatin 80 mg daily
Outpatient consideration for RODOLFO
May perform MRI of brain as outpatient
Ophthalmology evaluation as outpatient
Neuro Assessment/Plan
Assessment
Sudden onset left eye upper visual field visual change, most likely secondary to L BRAO
Plan
Continue lifelong aspirin
Continue atorvastatin 80 mg daily
Outpatient consideration for RODOLFO
May perform MRI of brain as outpatient
Ophthalmology evaluation as outpatient
Will follow as needed
Subjective/Objective
Subjective Data
Date of Service: November 22, 2024
Objective Data
Vital Signs
Temp Pulse Resp BP Pulse Ox
36.4 C 75 18 126/70 98
11/22/24 07:50 11/22/24 07:50 11/22/24 07:50 11/22/24 07:50 11/22/24 07:50
Lab Results
11/21/24 13:14
11/22/24 06:47
PT 12.2 Sec (11.4-14.6) 11/21/24 13:14
INR 0.86 11/21/24 13:14
APTT 25.6 Sec (23.4-35.0) 11/21/24 13:14
Sodium 140 mmol/L (135-145) 11/22/24 06:47
Potassium 4.5 mmol/L (3.5-5.1) 11/22/24 06:47
BUN 17 mg/dl (7-17) 11/22/24 06:47
Glucose 87 mg/dl (70-99) 11/22/24 06:47
Calcium 9.7 mg/dl (8.4-10.2) 11/22/24 06:47
LDL Cholesterol, Calc 154 mg/dl 11/22/24 06:47
Patient Allergies
cephalexin (From Keflex) Allergy (Verified 11/21/24 15:52)
Rash
Cephalosporins Allergy (Verified 11/21/24 20:21)
Rash/ITCHING
prochlorperazine edisylate (From Optonyazine) Allergy (Verified 11/21/24 20:22)
BODY RASH-LONG TIME AGO
prochlorperazine maleate (From Optonyazine) Allergy (Verified 11/21/24 20:22)
BODY RASH-LONG TIME AGO
Data Reviewed
-
CT-A: Report Reviewed
CT Head: Report Reviewed
Labs: Report Reviewed
Reviewed with: Physician and Nurse Practioner
Old Records: Summarized
Past History
Past History
ED Past Medical History: None
ED Past Surgical History: None
Medications
-
Medications:
Generic Name Dose Route Start Last Admin
Trade Name Freq PRN Reason Stop Dose Admin
Artificial Tears 1 drops 11/21/24 21:39 11/21/24 22:02
Artificial Tears Pf (Refresh) 10 Drop Droperette OPHTH 12/19/24 21:38 1 drops
QIDPRN PRN Administration
dry eyes
Aspirin 81 mg 11/22/24 08:00 11/22/24 08:27
Aspirin 81 Mg (Enteric Coated) Tablet PO 12/20/24 07:59 81 mg
DAILY GABE Administration
Atorvastatin Calcium 80 mg 11/22/24 18:00
Atorvastatin (Lipitor) 80 Mg Tablet PO 12/20/24 17:59
QPM GABE
Calcium/Vitamin D 500 mg 11/22/24 08:00 11/22/24 08:26
Calcium Carbonate 500 Mg/Vitamin D 5 Mcg (200 Units) Tablet PO 12/20/24 07:59 500 mg
DAILY GABE Administration
Cetirizine HCl 10 mg 11/21/24 22:00 11/21/24 21:09
Cetirizine Hcl 10 Mg Tablet PO 12/19/24 21:59 10 mg
HS GABE Administration
Duloxetine HCl 40 mg 11/21/24 22:00 11/21/24 21:09
Duloxetine Delayed Release 20 Mg Capsule PO 12/19/24 21:59 40 mg
HS GABE Administration
Lactobacillus/Bifidobacterium 1 cap 11/22/24 08:00 11/22/24 08:27
Lactobac/Bifidobac (Visbiome) PO 12/20/24 07:59 1 cap
DAILY GABE Administration
Lamotrigine 100 mg 11/21/24 20:19 11/22/24 08:27
Lamotrigine 100 Mg Tablet PO 12/19/24 20:18 100 mg
BID GABE Administration
Pantoprazole Sodium 20 mg 11/22/24 08:00 11/22/24 08:27
Pantoprazole 20 Mg Delayed Release Tablet PO 12/20/24 07:59 20 mg
DAILY GABE Administration
Psyllium Hydrophilic Mucilloid 1 packet 11/22/24 08:00 11/22/24 08:27
Psyllium Packet PO 12/20/24 07:59 1 packet
DAILY GABE Administration
Raloxifene HCl 60 mg 11/21/24 22:00 11/21/24 21:09
Raloxifene 60 Mg Tablet PO 12/19/24 21:59 60 mg
HS GABE Administration
Sodium Chloride 0 flush 11/21/24 21:00
Sodium Chloride 0.9% (Flush) Syringe IV 12/19/24 20:59
PER PROTOCOL GABE
[2024-11-22 08:42] LABS: TSH 0.99 uIU/ml (0.47-4.68)
[2024-11-22 11:28] LABS: Glycohemoglobin (HgbA1c) 5.6 % (4.0-5.6)
[2024-11-22 11:37] VITALS: BP 145/80
--- NOTE | 2024-11-22 13:53 | W.DS.TRANS ---
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
-
Discharge Instructions:
Discharge Diagnosis/Procedures Workup for TIA/CVA/retinal artery occlusion
Diet Low Cholesterol
Instructions:
Stand-Alone Forms:
Changes to Home Medications: Yes
Discharge Medications:
DC Medications w/original date entered in [facility]
calcium 600 mg (as carbonate)-vitamin D3 10 mcg (400 unit) tablet (Calcium 600 + D(3)) 1 tab PO DAILY Supplement 09/14/23
cetirizine 10 mg tablet (Zyrtec) 10 mg PO HS Allergies 09/14/23
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
hyaluronate sodium, stabilized 88 mg/4 mL intra-articular syringe (Monovisc) 88 mg intra-articular [id number] Autoimmune Disorder 09/14/23
ibuprofen 600 mg tablet 600 mg PO Q8HPRN PRN mild pain 09/14/23
lamotrigine 100 mg tablet 100 mg PO BID jaw pains 09/14/23
pantoprazole 20 mg tablet,delayed release (Protonix) 20 mg PO DAILY Gastrointestinal Issue 09/14/23
red yeast rice 600 mg capsule 1,200 mg PO DAILY Supplement 09/14/23
vitamin E (dl, acetate) 450 mg (1,000 unit) capsule 450 mg PO DAILY Supplement 09/14/23
Bifidobacterium longum 10 million cell capsule (Align (B.longum)) 1 cell PO DAILY Gastrointestinal Issue 11/21/24
carboxymethylcellulose sodium 0.5 % eye drops (Refresh Tears) 1 drp PRN dry eye 11/21/24
duloxetine 20 mg capsule,delayed release 40 mg PO HS Mental Health/Anxiety 11/21/24
krill [id number]-epa 300 mg-90 mg (27 mg-45 mg) capsule 1 cap PO DAILY Supplement 11/21/24
psyllium 1 packet PO DAILY Gastrointestinal Issue 11/21/24
raloxifene 60 mg tablet 60 mg PO HS Cancer 11/21/24
therapeutic multivitamin 1 tab PO DAILY Supplement 11/21/24
aspirin 81 mg tablet,delayed release 81 mg PO DAILY #30 tabs 11/22/24
atorvastatin 80 mg tablet 80 mg PO QPM #30 tabs 11/22/24
Home Medication Changes
Aspirin and statin initiated
Pending Results: No
--- NOTE | 2024-11-22 14:15 | CM ---
MD entered order for discharge.
Spoke with patient she said she is ready for discharge.
Offered VN she declined need.
Homar will drive her home.
PLAN Home no needs
== END 2024-11-22 16:05 | disposition home or self-care (01) ==
LOC: 4 EAST ACU 17:47
PROVIDERS: Emergency Medicine; Nurse Practitioner Family; ADMITTING PHYSICIAN Hospitalist; ATTENDING PHYSICIAN Internal Medicine; CONSULT PHYSICIAN Psychiatry & Neurology Neurology; EMERGENCY PHYSICIAN Emergency Medicine; FAMILY PHYSICIAN Internal Medicine
DX: H34.232 Retinal artery branch occlusion, left eye (principal); H53.40 Unspecified visual field defects; E78.00 Pure hypercholesterolemia, unspecified; F32.A Depression, unspecified; K21.9 Gastro-esophageal reflux disease without esophagitis; M81.0 Age-related osteoporosis without current pathological fracture; M79.7 Fibromyalgia; R68.84 Jaw pain; L29.9 Pruritus, unspecified; F41.1 Generalized anxiety disorder; E04.2 Nontoxic multinodular goiter; M50.30 Other cervical disc degeneration, unspecified cervical region; M43.12 Spondylolisthesis, cervical region; G93.89 Other specified disorders of brain; J34.1 Cyst and mucocele of nose and nasal sinus; Z79.82 Long term (current) use of aspirin; Z79.899 Other long term (current) drug therapy; Z82.49 Family history of ischemic heart disease and other diseases of the circulatory system; Z80.0 Family history of malignant neoplasm of digestive organs; Z80.51 Family history of malignant neoplasm of kidney; Z83.3 Family history of diabetes mellitus; Z81.8 Family history of other mental and behavioral disorders; Z83.518 Family history of other specified eye disorder; Z88.8 Allergy status to other drugs, medicaments and biological substances; Z88.1 Allergy status to other antibiotic agents; Z98.41 Cataract extraction status, right eye; Z98.42 Cataract extraction status, left eye; Z86.000 Personal history of in-situ neoplasm of breast
CPT/HCPCS: 70450; 70496; 70498; 70551; 80048; 80053; 80061; 83036; 84443; 85025; 85610; 85652; 85730; 86140; 93005; 93306; 99285; G0378; Q9967

== ENCOUNTER → 2025-01-23 10:47 | Outpatient (REF) | payer MEDICARE, OTHER, SELFPAY | LOC: MRI 3T 10:47 | PROVIDERS: ATTENDING PHYSICIAN Internal Medicine | DX: R90.89 Other abnormal findings on diagnostic imaging of central nervous system (principal) | CPT/HCPCS: 70553; A9575 ==

== ENCOUNTER → 2025-02-11 13:10 | Outpatient (REF) | payer MEDICARE, OTHER, SELFPAY | LOC: HWRAD 13:10 | PROVIDERS: ATTENDING PHYSICIAN Internal Medicine; REFERRING PHYSICIAN Internal Medicine Cardiovascular Disease | DX: H34.12 Central retinal artery occlusion, left eye (principal) | CPT/HCPCS: 93880 ==

== ENCOUNTER → 2025-02-26 13:17 | Outpatient (REF) | payer MEDICARE, OTHER, SELFPAY | LOC: MRI 3T 13:17 | PROVIDERS: ATTENDING PHYSICIAN Surgery; FAMILY PHYSICIAN Internal Medicine | DX: D05.12 Intraductal carcinoma in situ of left breast (principal) | CPT/HCPCS: 77049; A9585 ==